=== PATIENT | female | born 1975 | race Caucasian/White ===

== ENCOUNTER 2018-09-28 21:33 | Inpatient (IN) | payer SELFPAY ==
[~2018-09-28] VITALS: Ht 167.6 cm; Wt 68.0 kg
[2018-09-28 22:35] LABS: Basophils # (auto) 0 uL; Basophils % (auto) 0.4 % (0.0-2.0); Eosinophils # (auto) 0 uL; Eosinophils % (auto) 0.2 % (0.0-7.0); Hematocrit 41.2 % (36.0-46.0); Hemoglobin 13.7 g/dL (12.2-16.2); Lymphocytes # (auto) 1.3 uL; Lymphocytes % (auto) 15.7 % (10.0-50.0); Mean Corpuscular Hemoglobin 32.2 pg (28.0-32.0); Mean Corpuscular Hgb Conc. 33.3 g/dL (32.0-36.0); Mean Corpuscular Volume 96.7 fL (80.0-100.0); Monocytes # (auto) 0.3 uL; Monocytes % (auto) 3.7 % (0.0-12.0); Neutrophils # (auto) 6.6 uL; Nucleated Red Blood Cells % 0.1 %; Platelet Count (auto) 199 10^3/uL (140-450); Red Blood Cells 4.26 10^6/uL (4.0-5.20); Red Cell Distribution Width 15.4 % (11.8-14.3); White Blood Cell 8.2 10^3/uL (4.4-10.8)
[2018-09-28 22:44] LABS: Albumin 2.6 g/dL (3.4-5.0); Calcium 8.2 mg/dL (8.5-10.1); Potassium 3.4 mmol/L (3.5-5.1)
[2018-09-28 22:47] LABS: BUN/Creatinine Ratio 14.3; Bilirubin, Total 0.2 mg/dL (0.2-1.0); Total Protein 6.9 g/dL (6.4-8.2)
--- NOTE | 2018-09-28 22:50 | NUR ---
Dr. Skaggs calls, aware of pt's arrival to ER. Updated SBAR given. Orders received to admit to [facility] for PP recovery.
[2018-09-28] MEDS ORDERED: POTASSIUM CHL 10 Meq TABLET PO ONE (23:00)
[2018-09-28] MEDS: LACTATED RINGER'S 1,000 ML IV SCH (23:00)
[2018-09-28] MEDS ORDERED: SODIUM CHLORIDE 0.9% 1,000 ML IV ONE (23:01)
[2018-09-28] MEDS ORDERED: OXYTOCIN 10UNIT/ML 1ML VIAL IM ONE (23:15)
[2018-09-28] MEDS: IBUPROFEN 800 MG TAB PO PRN (23:20)
[2018-09-28] MEDS ORDERED: PHISODERM TOP SOLN 240ML BTL TOP PRN (23:45)
[2018-09-28] MEDS ORDERED: WITCH HAZEL-GLYCERIN PAD TOP PRN (23:45)
[2018-09-28] MEDS ORDERED: DERMOPLAST 60ML BOTTLE TOP PRN (23:45)
[2018-09-28] MEDS ORDERED: hydrALAZINE HCL 20 MG/ML VL ONE (23:54)
[2018-09-29 00:05] LABS: Urine Bacteria MANY /hpf (None Seen); Urine Blood 1+ /uL (Negative); Urine Specific Gravity 1.016 (1.001-1.035); Urine WBC 1 /hpf (0 - 5)
[2018-09-29] MEDS ORDERED: hydrALAZINE HCL 20 MG/ML VL IV ONE ×2 (00:15)
[2018-09-29 00:25] LABS: Amphetamine Screen, Urine POSITIVE (NEGATIVE); Barbiturate Scree,Urine NEGATIVE (NEGATIVE); Benzodiazephine Screen, Urine NEGATIVE (NEGATIVE); Cannabinoid Screen, Urine NEGATIVE (NEGATIVE); Cocaine Screen, Urine NEGATIVE (NEGATIVE); Opiate Scree,Urine NEGATIVE (NEGATIVE); Phencyclidine Screen, Urine NEGATIVE (NEGATIVE)
[2018-09-29 00:29] LABS: Alcohol, Urine 15.3 mg/dL (0-5)
[2018-09-29 01:10] LABS: INR < 0.93 (0.9-1.15); Partial Thromboplastin Time 24.8 sec (23.64-32.05)
[2018-09-29 02:17] LABS: Alanine Aminotransferase 20 U/L (13-56); Albumin 2.2 g/dL (3.4-5.0); Anion Gap 11 (5-15); Aspartate Aminotransferase 28 U/L (15-37); BUN/Creatinine Ratio 13.8; Blood Urea Nitrogen 8 mg/dL (7-18); Calcium 7.5 mg/dL (8.5-10.1); Carbon Dioxide 20 mmol/L (21-32); Chloride 111 mmol/L (98-107); GFR African American 147 mL/min; GFR Non-African American 121 mL/min; Glucose 102 mg/dL (74-106); Potassium 3.7 mmol/L (3.5-5.1); Sodium 142 mmol/L (136-145)
[2018-09-29 02:20] LABS: Alkaline Phosphatase 133 U/L (45-117); Bilirubin, Total 0.2 mg/dL (0.2-1.0); Total Protein 6.1 g/dL (6.4-8.2)
[2018-09-29 02:32] LABS: Hemoglobin 12.4 g/dL (12.2-16.2); Red Cell Distribution Width 15.3 % (11.8-14.3)
--- NOTE | 2018-09-29 02:39 | NUR ---
Call placed to CPS, spoke to Zelda Griffiths ( manager social responsibility 2) Case # [id number] Call CPS and update report when DC orders are received.
[2018-09-29] MEDS ORDERED: LACT. RINGERS/OXYTOCIN 20UNITS 1,000 ML IV SCH (02:54)
[2018-09-29 03:37] LABS: Basophils # (auto) 0 uL; Basophils % (auto) 0.1 % (0.0-2.0); Eosinophils # (auto) 0 uL; Hematocrit 37.6 % (36.0-46.0); Lymphocytes # (auto) 1.3 uL; Lymphocytes % (auto) 7.6 % (10.0-50.0); Mean Corpuscular Hemoglobin 31.7 pg (28.0-32.0); Mean Corpuscular Hgb Conc. 32.9 g/dL (32.0-36.0); Mean Corpuscular Volume 96.3 fL (80.0-100.0); Monocytes # (auto) 0.4 uL; Monocytes % (auto) 2.4 % (0.0-12.0); Neutrophils # (auto) 14.9 uL; Neutrophils % (auto) 89.9 % (37.0-80.0); Nucleated Red Blood Cells % 0.1 %; Platelet Count (auto) 230 10^3/uL (140-450); Red Blood Cells 3.91 10^6/uL (4.0-5.20); White Blood Cell 16.5 10^3/uL (4.4-10.8)
[2018-09-29] MEDS ORDERED: LABETALOL HCL 200 MG TAB PO ONE (04:00)
[2018-09-29] MEDS: ACETAMINOPHEN 325 MG TAB PO PRN ×2 (04:14→18:54)
[2018-09-29] MEDS ORDERED: OXYTOCIN 10UNIT/ML 1ML VIAL IV ONE (04:25)
[2018-09-29] MEDS ORDERED: LACTATED RINGER'S 1,000 ML IV ONE (06:30)
--- NOTE | 2018-09-29 06:32 | NUR ---
RN x 2 at bedside with Nimisha Lima CNM; bedside order received for IV bolus of 500mL and DR carlisle when pt is ready to ambulate; Orders received for regular diet; sandwich provided.
[2018-09-29] MEDS: LACTATED RINGER'S 1,000 ML IV SCH (06:39)
[2018-09-29 07:00] VITALS: BP 103/59
[2018-09-29] MEDS: IBUPROFEN 800 MG TAB PO PRN ×2 (07:09→16:56)
--- NOTE | 2018-09-29 07:15 | NUR ---
Carlisle catheter dc'd Order to discontinue carlisle catheter. Carlisle dc'd with clean technique following deflation of balloon. Patient tolerated well with no complaints of pain. Continue care.
--- NOTE | 2018-09-29 07:30 | NUR ---
Ambulation: Patient OOB with standby assistance by RN. Patient ambulated to bathroom with steady gait. Patient unable to void at this time. Pericare teaching provided with returned demonstration by patient. Clean gown provided and bed linen changed. Patient ambulated back to bed with steady gait and no distress noted.
[2018-09-29 08:59] VITALS: BP 108/64
[2018-09-29] MEDS ORDERED: LABETALOL HCL 200 MG TAB PO SCH (10:00)
--- NOTE | 2018-09-29 10:00 | NUR ---
[facility] Transport team at bedside for consents; All patient questions answered at this time.
[2018-09-29 11:27] VITALS: BP 112/61
--- NOTE | 2018-09-29 11:35 | NUR ---
Patient OOB with stand by assistance from RN; pt able to ambulate to bathroom, void 150mL without difficulty; pt ambulated without assistance back to bed. Will continue to monitor.
[2018-09-29 14:58] VITALS: BP 125/72
--- NOTE | 2018-09-29 18:42 | NUR ---
IV removal Left arm IV DC'd with sterile technique, catheter fully intact. Site was not patent and bloody at site. Site cleaned and pressure dressing applied to site. Patient tolerated procedure well. Discharged with aftercare instructions per MD.
[2018-09-29 19:00] VITALS: BP 139/60
[2018-09-29 22:49] VITALS: BP 109/61
[2018-09-29] MEDS ORDERED: IBUPROFEN 800 MG TAB PO ONE (23:18)
[2018-09-30 02:45] VITALS: BP 117/62
--- NOTE | 2018-09-30 06:10 | NUR ---
Report received from STACI Ann on stable pt. Assumed care. Addendum: 09/30/18 at 0644 by Lor Hunter RN Amended: Links added.
[2018-09-30 06:35] VITALS: BP 136/80
[2018-09-30] MEDS: IBUPROFEN 800 MG TAB PO PRN (08:21)
--- NOTE | 2018-09-30 10:20 | NUR ---
This RN returns to the unit and is notified that pt left the unit to smoke and has not returned in at least 30 minutes. No belongings found in patient's room and gown noted to be on the bathroom floor. Security called to locate pt. 1050- Security unable to locate pt.
--- NOTE | 2018-09-30 11:18 | NUR ---
Lalitha ([facility]) called and informed that pt eloped off the unit after signing smoking consent. S notified that security had been called and pt is not located on hospital grounds. Pt does has a peripheral IV in place. Lalitha ([facility]) states that the [employer] Department needs to be called to do a well visit at the pt's place of residence.
--- NOTE | 2018-09-30 11:30 | NUR ---
DIRECTOR Boogie SWANN NOTIFIED OF PT LEAVING THE UNIT WITH A SALINE LOCK INTACT. DIRECTOR STATES TO CALL THE [facility] DEPARTMENT AND COMPLETE AN INCIDENT REPORT.
--- NOTE | 2018-09-30 12:40 | NUR ---
's department called and notified that pt eloped the hospital with IV in place. Current address and phone number provided.
--- NOTE | 2018-09-30 16:28 | NUR ---
Received referral to see mom due to substance abuse. forming process line worker arrived L&D and inquire where mother was. Per Lor RN pt llbhanut ESDRAS. CPS report has been done by Bedside nurse by Lor. Pt left prior to social services technician contacting pt.
[2018-10-01 05:08] LABS: RPR Non Reactive (Non Reactive)
[2018-10-01 06:06] LABS: Rubella Antibodies, IgG 1.04 index (Immune >0.99)
== END 2018-09-30 10:06 | disposition left against medical advice (07) | DRG 806 ==
LOC: ER 21:42 → LDRP 23:00
PROVIDERS: ADMIT Specialist; ATTEND Specialist
PROC: 10E0XZZ Delivery of Products of Conception, External Approach (ICD-10-PCS; principal; 2018-09-28)
PROC: 10907ZC Drainage of Amniotic Fluid, Therapeutic from Products of Conception, Via Natural or Artificial Opening (ICD-10-PCS; 2018-09-28)
DX: O62.3 Precipitate labor (principal); O60.10X0 Preterm labor with preterm delivery, unspecified trimester, not applicable or unspecified; O99.12 Other diseases of the blood and blood-forming organs and certain disorders involving the immune mechanism complicating childbirth; F15.90 Other stimulant use, unspecified, uncomplicated; O99.314 Alcohol use complicating childbirth; O99.324 Drug use complicating childbirth; Z3A.35 35 weeks gestation of pregnancy; Z37.0 Single live birth
CPT/HCPCS: 36415; 51702; 80053; 80307; 80320; 81001; 81003; 84112; 84550; 84702; 85025; 85610; 85730; 86592; 86703; 86762; 86850; 86900; 86901; 87340; 96375; G0378; J2590